=== PATIENT | male | born 1945 | race Caucasian/White ===

== ENCOUNTER 2021-08-15 10:38 | Emergency (ER) | payer OTHER ==
--- OUTSIDE RECORDS SUMMARY | 2021-08-15 10:42 | XMS REPORT | Continuity of Care Document ---
:1945 Author Organization [facility] t Address [address] [place] [address] Care Team Providers Name Role Phone Nasim Boston MD Primary Care Physician MARIA G DAVIS Attending Clinician Unavailable Melissa LOW Attending Clinician Serena STONEWORK SUPERVISOR, E. 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 1-16 College constipati constipati 00:00: of on on Medicin e Neurogenic Neurogenic Disease Active 2017-07 [facility] orthostati orthostati 0-16 Co llege c c 00:00: of hypotensio hypotensio 00 Me dicin n (HCCode) n (HCCode) e 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 0-16 Co llege disorder) disorder) 00:00: of 00 Medicin e Other Other Disease Active 2017-07 [facility] fatigue fatigue 0-16 College 00:00: of 00 Medicin e Parkinson' Parkinson' Disease Active 2017-07 [facility] s disease s disease 0-16 [facility] (HCCode) (HCCode) 00:00: of 00 Medicin e DEEP BRAIN DEEP BRAIN Disease Active 2017-07 [facility] STIMULATOR STIMULATOR 0-16 Co llege - BILAT - BILAT 00:00: of STN - STN - 00 Medicin MEDTRONIC MEDTRONIC e Allergies, Adverse Reactions, Alerts Allergy Allergy Status Severity Reaction(s) Onset Inactive Treating Comm ents Source Name Type Date Date Clinician NO KNOWN Allergy Active [facility] Social History Social Habit Start Date Stop Date Quantity Comments Source History [facility] ge Alcohol Frequency of Medi cine History [facility] ge Alcohol Std Drinks of Med icine History [facility] Alcohol Binge of Medicine Alcohol intake 2021-07-28 2021-07-28 Current drinker [facility] 00:00:00 00:00:00 of alcohol of Medicine (finding) Tobacco use and 2018-04-19 2018-04-19 Smokeless tobacco [facility] exposure 00:00:00 00:00:00 non-user of Medicine Alcohol Comment 2018-04-19 2018-04-19 1oz Vodka/day [facility] 00:00:00 00:00:00 of Medicine Sex Assigned At [address] 1945 [facility] llege 00:00:00 00:00:00 of Medicine Smoking Status Start Date Stop Date Source Never smoked tobacco [facility] ege of Medicine Medications Ordered Filled Start Stop Current Ordering Indication Dosage Frequency Signature Comments Components Source Medication Medication Date Date Medication? Clinician (SIG) Name Name acyclovir Yes 400mg Take 400 [facility] (ZOVIRAX) 1-24 mg by [place] 400 MG 13:41: mouth of tablet 53 daily. Medicin e Levodopa 2020-07 Yes 2{capsu Inhale 2 [facility] (INBRIJA) 2-30 le} Capsules 2 [facility] 42 MG CAPS 00:00: times of 00 daily as Medicin needed e (off period). acyclovir 2020-07 Yes 400mg Take 400 [facility] (ZOVIRAX) 2-28 mg by [place] 400 MG 13:27: mouth of tablet 49 daily. Medicin e Levodopa 2020-07 Yes 2{capsu Inhale 2 [facility] (INBRIJA) 2-28 le} Capsules 2 [facility] 42 MG CAPS 00:00: times of 00 daily as Medicin needed e (off period). Carbidopa-L 2020-07 Yes 1{capsu Take 1 B [facility] evodopa ER 2-21 le} capsule by Col lege (RYTARY) 00:00: mouth four of 61.25-245 00 times Medicin MG CPCR daily. e Carbidopa-L 2020-07 Yes 1{capsu Take 1 [facility] evodopa ER 2-21 le} capsule by Col lege (RYTARY) 00:00: mouth four of 61.25-245 00 times Medicin MG CPCR daily. e sertraline 2020-07 Yes Take 1/2 [facility] (ZOLOFT) 50 0-05 tablet Colleg e MG tablet 00:00: daily for of 1 week Medicin then make e it 1 tablet daily thereafter sertraline 2020-07 Yes Take 1/2 [facility] (ZOLOFT) 50 0-05 tablet Colleg e MG tablet 00:00: daily for 1 week Medicin then make e it 1 tablet daily thereafter clonazepam Yes 1mg Take 1 [facility] (KLONOPIN) 8-30 Tablet by [facility] 1 MG tablet 00:00: mouth at of 00 bedtime. Medicin e clonazepam Yes 1mg Take 1 [facility] (KLONOPIN) 8-30 Tablet by [facility] 1 MG tablet 00:00: mouth at of 00 bedtime. Medicin e fludrocorti Yes 200ug Take 2 [facility] sone 8-27 Tablets by [place] (FLORINEF) 00:00: mouth of 0.1 MG 00 daily. Medicin tablet e fludrocorti Yes 200ug Take 2 [facility] sone 8-27 Tablets by [place] ([facility]) 00:00: mouth of 0.1 MG 00 daily. Medicin tablet e acyclovir Yes 400mg Take 400 [facility] (ZOVIRAX) 7-15 mg by [place] 400 MG 13:24: mouth of tablet 58 daily. Medicin e Droxidopa Yes 2{tbl} Take 2 [facility] 300 MG CAPS 5-04 Tablets by Co llege 00:00: mouth two of 00 times Medicin daily. e Droxidopa Yes 2{tbl} Take 2 [facility] 300 MG CAPS 5-04 Tablets by Co llege 00:00: mouth two of 00 times Medicin daily. e Droxidopa Yes 2{tbl} Take 2 [facility] 300 MG CAPS 5-04 Tablets by Co llege 00:00: mouth two of 00 times Medicin daily. e nitroglycer Yes APPLY 1 [facility] in 3-16 PATCH ONTO [place] (NITRODUR) 00:00: THE SKIN of 0.6 MG/HR 00 NIGHTLY Medicin patch e nitroglycer Yes APPLY 1 [facility] in 3-16 PATCH ONTO [place] (NITRODUR) 00:00: THE SKIN of 0.6 MG/HR 00 NIGHTLY Medicin patch e clonazepam Yes 1mg Take 1 [facility] (KLONOPIN) 3-16 Tablet by [facility] 1 MG tablet 00:00: mouth at of 00 bedtime. Medicin e nitroglycer Yes APPLY 1 [facility] in 3-16 PATCH ONTO [place] (NITRODUR) 00:00: THE SKIN of 0.6 MG/HR 00 NIGHTLY Medicin patch e RYTARY 2019-07 Yes TAKE 1 Eliel 61.25-245 1-18 CAPSULE College MG CPCR 00:00: FOUR TIMES of 00 A DAY Medicin e acyclovir 2019-07 Yes 400mg Take 400 [facility] (ZOVIRAX) 1-04 mg by [place] 400 MG 16:08: mouth of tablet 20 daily. Medicin e nitroglycer 2019-07 Yes APPLY 1 [facility] in 0-01 PATCH ONTO [place] (NITRODUR) 00:00: THE SKIN of 0.6 MG/HR 00 NIGHTLY Medicin patch e clonazepam 2020-0 Yes 1mg Take 1 Tab [facility] (KLONOPIN) 9-22 by mouth Colle ge 1 MG tablet 00:00: at of 00 bedtime. Medicin e amphetamine 2020-0 Yes 1{tbl} Take 1 Tab [facility] -dextroamph 9-04 by mouth [facility] etamine 00:00: two times of (ADDERALL, 00 daily. Medicin 10MG,) 10 e MG tablet amphetamine 2020-0 Yes 1{tbl} Take 1 Tab [facility] -dextroamph 9-04 by mouth [facility] etamine 00:00: two times of (ADDERALL, 00 daily. Medicin 10MG,) 10 e MG tablet fludrocorti 2020-0 Yes 200ug Take 2 [facility] sone 9-04 Tabs by [facility]) 00:00: mouth of 0.1 MG 00 daily. Medicin tablet e amphetamine 2020-0 Yes 1{tbl} Take 1 Tab [facility] -dextroamph 9-04 by mouth [facility] etamine 00:00: two times of (ADDERALL, 00 daily. Medicin 10MG,) 10 e MG tablet fludrocorti 2020-0 Yes 200ug Take 2 [place] [facility] sone 9-04 Tabs by [facility]) 00:00: mouth of 0.1 MG 00 daily. Medicin tablet e amphetamine 2020-0 Yes 1{tbl} Take 1 Tab [facility] -dextroamph 9-04 by mouth [facility] etamine 00:00: two times of (ADDERALL, 00 daily. Medicin 10MG,) 10 e MG tablet Droxidopa 2020-0 Yes 2{tbl} Take 2 [facility] 300 MG CAPS 7-01 Tabs by Colle ge 00:00: mouth two of 00 times Medicin daily. e Droxidopa 2020-0 Yes 2{tbl} Take 2 [facility] 100 MG CAPS 2-28 Tabs by Colle ge 00:00: mouth two of 00 times Medicin daily. e Droxidopa 2020-0 Yes 2{tbl} Take 2 [facility] 100 MG CAPS 2-28 Tabs by Colle ge 00:00: mouth two of 00 times Medicin daily. e Droxidopa 2020-0 Yes 2{tbl} Take 2 [facility] 100 MG CAPS 2-28 Tabs by Colle ge 00:00: mouth two of 00 times Medicin daily. e Droxidopa Yes 2{tbl} Take 2 [facility] 100 MG CAPS 2-28 Tabs by Colle ge 00:00: mouth two of 00 times Medicin daily. e Carbidopa-L 2018-07 Yes 1{capsu Take 1 [facility] evodopa ER 08-13 le} capsule by Col gigi MendezRYTARY) 00:00: mouth four of 61.25-245 00 times Medicin MG CPCR daily. e linaCLOtide 2018-07 Yes 1{tbl} Take 1 Tab [facility] 145 MCG 1-22 by mouth College CAPS 00:00: daily. of Medicin e linaCLOtide 2018-07 Yes 1{tbl} Take 1 Tab [facility] 145 MCG 1-22 by mouth College CAPS 00:00: daily. of Medicin e linaCLOtide 2018-07 Yes 1{tbl} Take 1 Tab [facility] 145 MCG 1-22 by mouth College CAPS 00:00: daily. of Medicin e linaCLOtide 2018-07 Yes 1{tbl} Take 1 Tab [facility] 145 MCG 1-22 by mouth College CAPS 00:00: daily. of Medicin e Immunizations Ordered Immunization Filled Immunization Date Status Commen ts Source Name Name Pfizer SARS-CoV-2 2020-09-14 Completed [facility] Vaccination 00:00:00 of Medicine Pfizer SARS-CoV-2 2020-09-14 Completed [facility] Vaccination 00:00:00 of Medicine Pfizer SARS-CoV-2 2020-09-14 Completed [facility] Vaccination 00:00:00 of Medicine Pfizer SARS-CoV-2 2020-08-21 Completed [facility] Vaccination 00:00:00 of Medicine Pfizer SARS-CoV-2 2020-08-21 Completed [facility] Vaccination 00:00:00 of Medicine Pfizer SARS-CoV-2 2020-08-21 Completed [facility] Vaccination 00:00:00 of Medicine Vital Signs Vital Name Observation Time Observation Value Comments Source HEIGHT 2020-04-17 08:04:00 185.4 cm WEIGHT 2020-04-17 08:04:00 76.2 kg HEIGHT 2020-04-16 10:41:00 185.4 cm WEIGHT 2020-04-16 10:41:00 75.751 kg Body weight 2021-07-28 19:40:00 79.833 kg [facility] of [facility] BMI 2021-07-28 19:40:00 23.22 kg/m2 [facility] Medicine Systolic blood 2021-07-28 19:40:00 95 mm[Hg] [facility] pressure Medicine Diastolic blood 2021-07-28 19:40:00 57 mm[Hg] [facility] of pressure Medicine Heart rate 2021-07-28 19:40:00 87 /min [facility] of Medicine Body height 2021-07-28 19:40:00 185.4 cm [facility] C [facility] of Medicine Systolic blood 2021-07-01 19:25:00 167 mm[Hg] [facility] of pressure Medicine Diastolic blood 2021-07-01 19:25:00 87 mm[Hg] [facility] pressure Medicine Heart rate 2021-07-01 19:25:00 78 /min [facility] C [facility]lege of Medicine Body height 2021-07-01 19:25:00 185.4 cm [facility] C [facility] of Medicine Body weight 2021-07-01 19:25:00 79.153 kg [facility] of Medicine BMI 2021-07-01 19:25:00 23.02 kg/m2 [facility] C [facility] of Medicine Systolic blood 2021-01-16 18:23:00 151 mm[Hg] [facility] pressure Medicine Diastolic blood 2021-01-16 18:23:00 72 mm[Hg] [facility] pressure Medicine Heart rate 2021-01-16 18:23:00 83 /min [facility] of Medicine Body height 2021-01-16 18:23:00 185.4 cm [facility] of Medicine Body weight 2021-01-16 18:23:00 78.019 kg [facility] of Medicine BMI 2021-01-16 18:23:00 22.69 kg/m2 [facility] C [facility] of Medicine Systolic blood 2020-05-08 16:08:00 138 mm[Hg] [facility] of pressure Medicine Diastolic blood 2020-05-08 16:08:00 83 mm[Hg] [facility] Heart rate 2020-05-08 16:08:00 85 /min [facility] ollege of [facility] Body height 2020-05-08 16:08:00 185.4 cm [facility] ollege of [facility] Body weight 2020-05-08 16:08:00 75.751 kg [facility] ollege of [facility] BMI 2020-05-08 16:08:00 22.03 kg/m2 [facility] ollege of [facility] HEIGHT 2020-04-17 08:04:00 185.4 cm WEIGHT 2020-04-17 08:04:00 76.2 kg HEIGHT 2020-04-16 10:41:00 185.4 cm WEIGHT 2020-04-16 10:41:00 75.751 kg Procedures This patient has no known procedures. Plan of Care Planned Activity Planned Date Details Comments Source Future Scheduled 2021-08-03 Screening for [facility] Col lege of Test 20:51:45 malignant neoplasm of Medici ne colon (procedure) [code = 448097838] Future Scheduled 2021-08-03 TETANUS SHOT (ADULT) [facility] Test 20:51:45 [code = TETANUS SHOT Medicin e (ADULT)] Future Scheduled 2021-08-03 Hepatitis C screening [facility] Test 20:51:45 (procedure) [code = Medicine [id number]] Future Scheduled 2021-08-03 ZOSTER VACCINE (1 of [facility] Test 20:51:45 2) [code = ZOSTER Medicine VACCINE (1 of 2)] Future Scheduled 2021-08-03 FALL SCREEN [code = [facility] of Test 20:51:45 FALL SCREEN] Medicine Future Scheduled 2021-08-03 Pneumococcal 65+ ([address] [facility] of Test 20:51:45 1 - PPSV23) [code = Medicine Pneumococcal 65+ (1 of 1 - PPSV23)] Future Scheduled 2021-08-03 MEDICARE AWV (Initial) B [facility] of Test 20:51:45 [code = MEDICARE AWV Medicin e (Initial)] Future Scheduled 2021-08-03 FLU VACCINE > [address] [facility] of Test 20:51:45 [code = FLU VACCINE > Medici ne 6 MONTHS] Future Scheduled 2021-08-03 COVID-19 Vaccine (3 - Ba [facility] of Test 20:51:45 Booster for Pfizer Medicine series) [code = COVID-19 Vaccine (3 - Booster for Pfizer series)] Future Scheduled 2021-07-03 Pneumococcal 65+ ([address] [facility] of Test 12:49:33 1 - PPSV23) [code = Medicine Pneumococcal 65+ (1 of 1 - PPSV23)] Future Scheduled 2021-07-03 MEDICARE AWV (Initial) B [facility] of Test 12:49:33 [code = MEDICARE AWV Medicin e (Initial)] Future Scheduled 2021-07-03 FLU VACCINE > [address] [facility] of Test 12:49:33 [code = FLU VACCINE > Medici ne 6 MONTHS] Future Scheduled 2021-07-03 COVID-19 Vaccine (3 - Ba [facility] of Test 12:49:33 Booster for Pfizer Medicine series) [code = COVID-19 Vaccine (3 - Booster for Pfizer series)] Future Scheduled 2021-07-03 Screening for [facility] Col lege of Test 12:49:33 malignant neoplasm of Medici ne colon (procedure) [code = [id number]] Future Scheduled 2021-07-03 TETANUS SHOT (ADULT) [facility] of Test 12:49:33 [code = TETANUS SHOT Medicin e (ADULT)] Future Scheduled 2021-07-03 Hepatitis C screening [facility] of Test 12:49:33 (procedure) [code = Medicine [id number]] Future Scheduled 2021-07-03 ZOSTER VACCINE ([address] [facility] of Test 12:49:33 2) [code = ZOSTER Medicine VACCINE (1 of 2)] Future Scheduled 2021-07-03 FALL SCREEN [code = [facility] of Test 12:49:33 FALL SCREEN] Medicine Future Scheduled 2021-01-20 Screening for [facility] Col lege of Test 07:50:06 malignant neoplasm of Medici ne colon (procedure) [code = [id number]] Future Scheduled 2021-01-20 TETANUS SHOT (ADULT) [facility] of Test 07:50:06 [code = TETANUS SHOT Medicin e (ADULT)] Future Scheduled 2021-01-20 Hepatitis C screening [facility] of Test 07:50:06 (procedure) [code = Medicine [id number]] Future Scheduled 2021-01-20 ZOSTER VACCINE ([address] [facility] of Test 07:50:06 2) [code = ZOSTER Medicine VACCINE (1 of 2)] Future Scheduled 2021-01-[address] >=[address] [facility] llege of Test 07:50:06 (PPSV23) [code = Medicine PNEUMOVAX >=65 (PPSV23)] Future Scheduled 2021-01-20 MEDICARE AWV (Initial) B [facility] of Test 07:50:06 [code = MEDICARE AWV Medicin e (Initial)] Future Scheduled 2021-01-20 FLU VACCINE > [address] [facility] of Test 07:50:06 [code = FLU VACCINE > Medici ne 6 MONTHS] Future Scheduled 2021-01-20 FALL SCREEN [code = [facility] [place] of Test 07:50:06 FALL SCREEN] Medicine Future Scheduled COLON CANCER [facility] ege of Test SCREENING: COLONOSCOPY Medic ine [code = COLON CANCER SCREENING: COLONOSCOPY] Future Scheduled TETANUS SHOT (ADULT) [facility] Test [code = TETANUS SHOT Medicin e (ADULT)] Future Scheduled HEPATITIS C SCREENING [facility] Test [code = HEPATITIS C Medicine SCREENING] Future Scheduled ZOSTER VACCINE ([address] [facility] of Test 2) [code = ZOSTER Medicine VACCINE (1 of 2)] Future Scheduled PNEUMOVAX >=[address] [facility] llege of Test (PPSV23) [code = Medicine PNEUMOVAX >=65 (PPSV23)] Future Scheduled MEDICARE AWV (Initial) B [facility] Test [code = MEDICARE AWV Medicin e (Initial)] Future Scheduled FLU VACCINE > 6 MONTHS B [facility] Test [code = FLU VACCINE > Medici ne 6 MONTHS] Future Scheduled FALL SCREEN [code = [facility] [place] of Test FALL SCREEN] Medicine Encounters Start End Encounter Admission Attending Care Care Encounter Source Date/Time Date/Time Type Type Clinicians Facility Department ID 2021-04-09 Outpatient [facility] Surgery [id number] [facility] 09:07:03 ROMINA 2021-07-28 2021-07-28 Office JANICE Torres [id number] [facility] 13:30:00 15:07:09 Visit Guzman AMBULATOR [id number] College Y [id number] Medi kika 800 e 2021-07-01 2021-07-01 Office JANICE Lyons [id number] [facility] 13:30:00 14:51:09 Visit Geovanna Llanes AMBULATOR [id number] College Y 0.2.7.2.686 of [id number] [facility] kika 800 e 2021-01-16 2021-01-16 Office JANICE Torres [id number] [facility] 13:20:10 14:30:12 Visit Guzman AMBULATOR [id number] College Y 0.2.7.2.686 of [id number] [facility] kika 800 e 2020-09-12 2020-09-12 Outpatient A[facility] [id number] [place] 02:25:00 02:25:00 0311 [facility] 2020-05-08 2020-05-08 Office JANICE Torres [id number] [facility] 10:02:47 11:17:09 Visit Guzman AMBULATOR [id number] College Y 0.2.7.2.686 of [id number] [facility] kika 800 e 2020-04-16 2020-04-16 Outpatient [facility] [id number] [facility] 00:00:00 00:00:00 2020-04-12 2020-04-12 Outpatient [facility] [id number] [facility] 00:00:00 00:00:00 2020-04-12 2020-04-12 Outpatient [facility] [id number] [facility] 00:00:00 00:00:00 2020-04-12 2020-04-12 Outpatient [facility] SLE [id number] [facility] 00:00:00 00:00:00 2020-04-12 2020-04-12 Outpatient [facility] SLE [id number] [facility] 00:00:00 00:00:00 Results Test Description Test Time Test Comments Results Result [facility] e Comments TISSUE EXAM 2020-04-23 Surgical Pathology 09:25:00 Report Case: [id number] Authorizing Provider: Romina Davis MD Collected: 04/17/2020 11:06 AM Ordering Location: [facility] PERIOPERATIVE Received: 04/17/2020 11:22 AM SERVICES Pathologist: Walker Manuel MD Specimen: Explant, IMPLANTABLE PULSE GENERATOR NEUROSURGICAL HARDWARE, REMOVAL:DEEP BRAIN STIMULATOR DEVICE (GROSS EXAMINATION ONLY) Signing Pathologist Direct Phone Line: [phone] ally signed by Walker Manuel MD on 04/23/2020 at 9:25 [id number] diagnosis: Parkinson's disease, end of battery life of deep brain stimulator Explant Received fresh labeled with the patient's name, accession number and "implantable pulse generator" is a 5.8 x 5.4 x 1.0 cm metallic mei piece of hardware, which is consistent with a deep brain stimulator and displays the following inscription: MedtronicACTIVA FBSN [id number] gross photograph is taken. No sections are submitted. This case is for gross examination only. PA/pl BASIC METABOLIC PANEL 2020-04-17 09:02:00 Test Item Value Reference Range Interpretation Comme nts SODIUM (BEAKER) (test code 142 meq/L 136-145 = 381) POTASSIUM (BEAKER) (test 3.6 meq/L 3.5-5.1 Spe cimen slightly code = 379) hemolyzed CHLORIDE (BEAKER) (test 107 meq/L 98-107 code = 382) CO2 (BEAKER) (test code = 27 meq/L 22-29 355) BLOOD UREA NITROGEN 19 mg/dL 7-21 (BEAKER) (test code = 354) CREATININE (BEAKER) (test 1.26 mg/dL 0.57-1.25 H Sp ecimen slightly code = 358) hemolyzed GLUCOSE RANDOM (BEAKER) 103 mg/dL 70-105 (test code = 652) CALCIUM (BEAKER) (test code 9.4 mg/dL 8.4-10.2 = 697) EGFR (BEAKER) (test code = 56 mL/min/1.73 sq m ESTIMATED GFR IS NOT 1092) ACCURATE CRE ATININE CLEARANCE IN DC EDICTING GLOMERULAR FILT RATION RATE. ESTIMATED GFR IS NOT APPLICABLE FOR DIALYSIS PATIENTS. [facility] [place] ID - [id number] TIME/[id number] 08:56:00 Test Item Value Reference Range Interpretation Comments PROTIME (BEAKER) (test code = 13.9 seconds 11.9-14.2 759) INR (BEAKER) (test code = 370) 1.10 <=5.90 Effective 11/30/2018: PT Reference Range ChangeNew: 11.9-14.2 Previous: 11.7- 14.7RECOMMENDED COUMADIN/WARFARIN INR THERAPY RANGESSTANDARD DOSE: 2.0-3.0 Includes: PROPHYLAXIS for venous thrombosis, systemic embolization; TREATMENT for venous thrombosis and/or pulmonary embolus.HIGH RISK: Target INR is2.5-3.5 for patients wiht mechanical heart valves.SARS-COV2/RT-PCR ([facility]) 2020-04-13 11:52:00 Test Item Value Reference Range Interpretation Comments SARS-COV2/RT-PCR (test Negative Not Detected, Negative, code = 1613680) See external report for linked test SARS-COV-2 PERFORMING LAB [facility] (test code = 7316034) Negative result for this test determines that SARS-CoV-2 RNA was not present in the specimen above the Limit of Detection (LOD). However, Negative results do not preclude SARS-CoV-2 infection and should not be used as the sole basis for treatment or patient management decisions. Negative results mustbe combined with clinical observations, patient history, and epidemiological information. A false negative result may occur if a specimen is improperly collected, transported or handled. A false negative result should be considered if patient's recent exposures or clinical presentation indicate that COVID-19 (SARS-CoV-2) is likely and diagnostic tests for other causes of illness are negative. Re-testing should be considered in cases of suspected false negatives.The limit of detection for this assay is 800 copies/mL.This SARS CoV-2 test is a real-time RT-PCR test intended for the qualitative detection of nucleic acid from SARS-CoV-2 in a nasopharyngeal swab specimen collected from individuals susp ected of COVID-19 by their healthcare provider.This test has not been Food and Drug Administration (FDA) cleared or approved. This is a modified version of an approved Emergency Use Authorization (EUA) and is in the process of review by the FDA. Once authorized by the FDA, the issued EUA will be effective until the declaration that circumstances exist justifying the authorization of the emergency use of in vitro diagnostic tests for detection and/or diagnosis of COVID-19 is terminated under Section 564(b)(2) of the Act or the EUA is revoked under Section 564(g) of the Act.Fact Sheet for Healthcare Providers:https://www.[employer]/sites/default/files/product/documents/Fact_Rodríguez mccloudv_RJ_Rhlkfoqxh_Tzou_EMWB-IhY-3.pdfFact Sheet for Healthcare Patients:https://www.[employer]/sites/default/files/product/ documents/Fxjh_Wmjgq_Govwhnaa_Bjdl_CRYF-MmN-3.pdfPerforming Laboratory:[facility], [place] [address]RDF, CHEST, 2 VIEWS 2020-04-12 14:46:00Reason for exam:->preop testingFINAL REPORT INDICATION: preop testing COMPARISON: June 05, 2019 TECHNIQUE: Frontal and lateral views of the chest. FINDINGS: Lungs and pleura: Clear lungs. No effusion.Heart and mediastinum: Normal heart size. Unremarkable mediastinal contours.Osseous structures: No acute abnormality.Additional findings: None. IMPRESSION: No acute intrathoracic abnormality. Signed: JR Shivam, Cally Batista Verified Date/Time: 04/12/2020 14:46:25 Reading Location: [facility] Radiology Reading Room BASI METABOLIC [id number] 14:07:00 Test Item Value Reference Range Interpretation Comments SODIUM (BEAKER) 143 meq/L 136-145 (test code = 381) POTASSIUM (BEAKER) 3.4 meq/L 3.5-5.1 L (test code = 379) CHLORIDE (BEAKER) 104 meq/L 98-107 (test code = 382) CO2 (BEAKER) (test 31 meq/L 22-29 H code = 355) BLOOD UREA NITROGEN 16 mg/dL 7-21 (BEAKER) (test code = 354) CREATININE (BEAKER) 1.12 mg/dL 0.57-1.25 (test code = 358) GLUCOSE RANDOM 91 mg/dL 70-105 (BEAKER) (test code = 652) CALCIUM (BEAKER) 9.5 mg/dL 8.4-10.2 (test code = 697) EGFR (BEAKER) (test 64 mL/min/1.73 ESTIMA STEPHANIE GFR IS code = 1092) sq m NOT ACCURATE CREATININE CLEARANCE IN PREDICTING GLOMERULAR FILTRATION RATE . ESTIMATED GFR I S NOT APPLICABLE FOR DIALYSIS PATIEN TS. [place] ID - TRAY CURINALYSIS W/ REFLEX URINE [id number] 13:55:00 Test Item Value Reference Range Interpretation Comments COLOR (BEAKER) (test code = 470) Yellow CLARITY (BEAKER) (test code = 469) Clear SPECIFIC GRAVITY UA (BEAKER) (test 1.016 1.001-1.035 code = 468) PH UA (BEAKER) (test code = 467) 7.0 5.0-8.0 PROTEIN UA (BEAKER) (test code = Negative Negative 464) GLUCOSE UA (BEAKER) (test code = Negative Negative 365) KETONES UA (BEAKER) (test code = Trace Negative A 371) BILIRUBIN UA (BEAKER) (test code = Negative Negative 462) BLOOD UA (BEAKER) (test code = Negative Negative 461) NITRITE UA (BEAKER) (test code = Negative Negative 465) LEUKOCYTE ESTERASE UA (BEAKER) Negative Negative (test code = 466) UROBILINOGEN UA (BEAKER) (test 0.2 mg/dL 0.2-1.0 code = 463) RBC UA (BEAKER) (test code = 519) < /HPF WBC UA (BEAKER) (test code = 520) < /HPF MUCUS (BEAKER) (test code = 1574) Rare AMORPHOUS CRYSTALS (BEAKER) (test Occasional code = 1584) SOURCE(BEAKER) (test code = 2795) [place] ID - [auto][place] ID - techPROTHROMBIN [id number] 13:54:00 Test Item Value Reference Range Interpretation Comments PROTIME (BEAKER) (test code = 14.4 seconds 11.9-14.2 H 759) INR (BEAKER) (test code = 370) 1.15 <=5.90 Effective 11/30/2018: PT Reference Range ChangeNew: 11.9-14.2 Previous: 11.7- 14.7RECOMMENDED COUMADIN/WARFARIN INR THERAPY RANGESSTANDARD DOSE: 2.0-3.0 Includes: PROPHYLAXIS for venous thrombosis, systemic embolization; TREATMENT for venous thrombosis and/or pulmonary embolus.HIGH RISK: Target INR is2.5-3.5 for patients wiht mechanical heart valves.[id number] 13:54:00 Test Item Value Reference Range Interpretation Comments PARTIAL THROMBOPLASTIN TIME 34.5 seconds 22.5-36.0 (BEAKER) (test code = 760) CBC W/PLT COUNT & AUTO [id number] 13:48:00 Test Item Value Reference Range Interpretation Comments WHITE BLOOD CELL COUNT (BEAKER) 6.7 K/ L 3.5-10.5 (test code = 775) RED BLOOD CELL COUNT (BEAKER) 4.52 M/ L 4.63-6.08 L (test code = 761) HEMOGLOBIN (BEAKER) (test code = 14.7 GM/DL 13.7-17.5 410) HEMATOCRIT (BEAKER) (test code = 43.2 % 40.1-51.0 411) MEAN CORPUSCULAR VOLUME (BEAKER) 95.6 fL 79.0-92.2 H (test code = 753) MEAN CORPUSCULAR HEMOGLOBIN 32.5 pg 25.7-32.2 H (BEAKER) (test code = 751) MEAN CORPUSCULAR HEMOGLOBIN CONC 34.0 GM/DL 32.3-36.5 (BEAKER) (test code = 752) RED CELL DISTRIBUTION WIDTH 13.1 % 11.6-14.4 (BEAKER) (test code = 412) PLATELET COUNT (BEAKER) (test 182 K/CU MM 150-450 code = 756) MEAN PLATELET VOLUME (BEAKER) 9.8 fL 9.4-12.4 (test code = 754) NUCLEATED RED BLOOD CELLS 0 /100 WBC 0-0 (BEAKER) (test code = 413) NEUTROPHILS RELATIVE PERCENT 71 % (BEAKER) (test code = 429) LYMPHOCYTES RELATIVE PERCENT 20 % (BEAKER) (test code = 430) MONOCYTES RELATIVE PERCENT 7 % (BEAKER) (test code = 431) EOSINOPHILS RELATIVE PERCENT 2 % (BEAKER) (test code = 432) BASOPHILS RELATIVE PERCENT 1 % (BEAKER) (test code = 437) NEUTROPHILS ABSOLUTE COUNT 4.71 K/ L 1.78-5.38 (BEAKER) (test code = 670) LYMPHOCYTES ABSOLUTE COUNT 1.30 K/ L 1.32-3.57 L (BEAKER) (test code = 414) MONOCYTES ABSOLUTE COUNT (BEAKER) 0.44 K/ L 0.30-0.82 (test code = 415) EOSINOPHILS ABSOLUTE COUNT 0.15 K/ L 0.04-0.54 (BEAKER) (test code = 416) BASOPHILS ABSOLUTE COUNT (BEAKER) 0.03 K/ L 0.01-0.08 (test code = 417) IMMATURE GRANULOCYTES-RELATIVE 0 % 0-1 PERCENT (BEAKER) (test code = 2801) TISSUE [id number] 19:35:00Surgical Pathology Report Case: [id number] Authorizing Provider: Romina Davis MD Collected: 06/05/2019 0843 Ordering Location: [facility] PERIOPER[facility]IVE Received: 06/05/2019 0912 SERVICES Pathologist: Walker Manuel MD Specimen: Explant, dbs battery NEUROSURGICAL HARDWARE, REMOVALlDEEP BRAIN STIMULATOR BATTERY (GROSS EXAMINATION ONLY) Signing Pathologist DirectPhone Line: [phone] signed by Walker Manuel MD on 06/05/2019 at 7:35 [id number] of battery life of deep brain stimulatorReceived fresh labeled with the patient's name, accession number and "explant" is a 5.8 x 5.5 x 1.0 cm, metallic, mei, D-shaped piece of hardware that containsthe following inscription:"[employer]""ACTIVA SC SN [id number]""[id number]"A gross photograph is taken. No sections are submitted. This case is for gross examination only. PA/ewURINALYSIS W/ REFLEX URINE [id number] 09:58:00 Test Item Value Reference Range Interpretation Comments COLOR (BEAKER) (test code = 470) Yellow CLARITY (BEAKER) (test code = 469) Clear SPECIFIC GRAVITY UA (BEAKER) (test 1.012 1.001-1.035 code = 468) PH UA (BEAKER) (test code = 467) 6.0 5.0-8.0 PROTEIN UA (BEAKER) (test code = Negative Negative 464) GLUCOSE UA (BEAKER) (test code = Negative Negative 365) KETONES UA (BEAKER) (test code = Negative Negative 371) BILIRUBIN UA (BEAKER) (test code = Negative Negative 462) BLOOD UA (BEAKER) (test code = 461) Negative Negative NITRITE UA (BEAKER) (test code = Negative Negative 465) LEUKOCYTE ESTERASE UA (BEAKER) Negative Negative (test code = 466) UROBILINOGEN UA (BEAKER) (test code 0.2 mg/dL 0.2-1.0 = 463) RBC UA (BEAKER) (test code = 519) 0 /HPF WBC UA (BEAKER) (test code = 520) < /HPF MUCUS (BEAKER) (test code = 1574) Rare SOURCE(BEAKER) (test code = 2795) BASIC METABOLIC [id number] 07:42:00 Test Item Value Reference Range Interpretation Comments SODIUM (BEAKER) (test 141 meq/L 136-145 code = 381) POTASSIUM (BEAKER) 4.4 meq/L 3.5-5.1 Specimen slightly (test code = 379) hemolyzed CHLORIDE (BEAKER) 108 meq/L 98-107 H (test code = 382) CO2 (BEAKER) (test 28 meq/L 22-29 code = 355) BLOOD UREA NITROGEN 13 mg/dL 7-21 (BEAKER) (test code = 354) CREATININE (BEAKER) 1.36 mg/dL 0.57-1.25 H Specimen slightly (test code = 358) hemolyzed GLUCOSE RANDOM 89 mg/dL 70-105 (BEAKER) (test code = 652) CALCIUM (BEAKER) 9.2 mg/dL 8.4-10.2 (test code = 697) EGFR (BEAKER) (test INSUFFIC IENT CLINICAL code = 1092) DATA TO CALCULA TE ESTIMATED GFR. [id number] 07:22:00 Test Item Value Reference Range Interpretation Comments PARTIAL THROMBOPLASTIN TIME 29.3 seconds 22.5-36.0 (BEAKER) (test code = 760) PROTHROMBIN [id number] 07:21:00 Test Item Value Reference Range Interpretation Comments PROTIME (BEAKER) (test code = 13.4 seconds 11.9-14.2 759) INR (BEAKER) (test code = 370) 1.1 <=5.9 Effective 11/30/2018: PT Reference Range ChangeNew: 11.9-14.2 Previous: 11.7- 14.7RECOMMENDED COUMADIN/WARFARIN INR THERAPY RANGESSTANDARD DOSE: 2.0-3.0 Includes: PROPHYLAXIS for venous thrombosis, systemic embolization; TREATMENT for venous thrombosis and/or pulmonary embolus.HIGH RISK: Target INR is2.5-3.5 for patients wiht mechanical heart valves.RAD, CHEST, 1 VIEW, NON [id number] 07:14:00Reason for exam:->End of battery life of deep brain stimulatorShould this be performed at the bedside?->YesFINAL REPORT RAD, CHEST, 1 VIEW, NON DEPT INDICATION: End of battery life of deep brain stimulator COMPARISON: None FINDINGS: Portable frontal view of the chest. IMPRESSION: Support Lines: Bilateral deep brain stimulator generators project over the lung apices. Lungs and pleura: Visible airspaces are clear. No pneumothorax.Heart and mediastinum: Cardiac size is prominent andmay be partially magnified by technique. No venous engorgement or hilar adenopathy. Normal aortic caliber.Additional findings: None. Signed: JR Shivam, Cally Batista Verified Date/Time: 06/05/2019 07:14:29 Reading Location: [facility] Radiology Reading Room CBC W/PLT COUNT & AUTO DIFFERENTIAL 2019-06-05 07:13:00 Test Item Value Reference Range Interpretation Comments WHITE BLOOD CELL COUNT (BEAKER) 5.2 K/ L 3.5-10.5 (test code = 775) RED BLOOD CELL COUNT (BEAKER) 4.54 M/ L 4.63-6.08 L (test code = 761) HEMOGLOBIN (BEAKER) (test code = 14.7 GM/DL 13.7-17.5 410) HEMATOCRIT (BEAKER) (test code = 44.8 % 40.1-51.0 411) MEAN CORPUSCULAR VOLUME (BEAKER) 98.7 fL 79.0-92.2 H (test code = 753) MEAN CORPUSCULAR HEMOGLOBIN 32.4 pg 25.7-32.2 H (BEAKER) (test code = 751) MEAN CORPUSCULAR HEMOGLOBIN CONC 32.8 GM/DL 32.3-36.5 (BEAKER) (test code = 752) RED CELL DISTRIBUTION WIDTH 13.3 % 11.6-14.4 (BEAKER) (test code = 412) PLATELET COUNT (BEAKER) (test 193 K/CU MM 150-450 code = 756) MEAN PLATELET VOLUME (BEAKER) 10.2 fL 9.4-12.4 (test code = 754) NUCLEATED RED BLOOD CELLS 0 /100 WBC 0-0 (BEAKER) (test code = 413) NEUTROPHILS RELATIVE PERCENT 60 % (BEAKER) (test code = 429) LYMPHOCYTES RELATIVE PERCENT 29 % (BEAKER) (test code = 430) MONOCYTES RELATIVE PERCENT 9 % (BEAKER) (test code = 431) EOSINOPHILS RELATIVE PERCENT 2 % (BEAKER) (test code = 432) BASOPHILS RELATIVE PERCENT 1 % (BEAKER) (test code = 437) NEUTROPHILS ABSOLUTE COUNT 3.06 K/ L 1.78-5.38 (BEAKER) (test code = 670) LYMPHOCYTES ABSOLUTE COUNT 1.47 K/ L 1.32-3.57 (BEAKER) (test code = 414) MONOCYTES ABSOLUTE COUNT (BEAKER) 0.45 K/ L 0.30-0.82 (test code = 415) EOSINOPHILS ABSOLUTE COUNT 0.12 K/ L 0.04-0.54 (BEAKER) (test code = 416) BASOPHILS ABSOLUTE COUNT (BEAKER) 0.04 K/ L 0.01-0.08 (test code = 417) IMMATURE GRANULOCYTES-RELATIVE 0 % 0-1 PERCENT (BEAKER) (test code = 4681)
--- NOTE | 2021-08-15 12:08 | RAD REPORT ---
EXAM DESCRIPTION: RAD - Abdomen W Erect - 08/15/2021 11:51 am CLINICAL HISTORY: fb;Abd pain Pain COMPARISON: No comparisons FINDINGS: The bowel gas pattern is non-obstructive. No evidence of free air or pneumatosis. No suspi cious calcifications. No significant bony findings. Prostate radiation beads noted. IMPRESSION: Negative examination.
--- NOTE | 2021-08-15 12:08 | RAD REPORT ---
EXAM DESCRIPTION: RAD - Chest Single View - 08/15/2021 11:51 am CLINICAL HISTORY: fb Chest pain. COMPARISON: No comparisons FINDINGS: Portable technique limits examination quality. The lungs are grossly clear. The heart is normal in size. No displaced fractures.Stimulator devices a re present obscuring portions of the upper lobe parenchyma bilaterally. IMPRESSION: No acute intrathoracic process suspected.
--- NOTE | 2021-08-15 12:46 | EDPHYS ---
Physician Documentation [facility] Name: Cole Bo Age: 76 yrs Sex: Male : 1945 Arrival Date: 08/15/2021 Time: 10:42 Bed 23 Private MD: Jarret Rouse V ED Physician Chad Coates HPI: 08/15 11:33 This 76 yrs old Male presents to ER via Ambulatory with complaints of vick Swallowed Foreign Body. 11:33 maybe swallowed something. Onset: The symptoms/episode began/occurred 8 day(s) ago. vick Severity of symptoms: At their worst the symptoms were mild in the emergency department the symptoms are unchanged. The patient has not experienced similar symptoms in the past. Historical: - Allergies: 10:52 No Known Allergies; ll1 - PMHx: 10:52 Parkinson's disease; prostate CA (past); Hypertensive disorder; OSHS; ll1 - PSHx: 10:52 deep brain stimulator; ll1 - Immunization history:: Client reports receiving the 2nd dose of the Covid vaccine. - Social history:: Smoking status: Patient denies any tobacco usage or history of. ROS: 11:34 Constitutional: Negative for fever, chills, and weight loss, Eyes: Negative for injury, vick pain, redness, and discharge, ENT: Negative for injury, pain, and discharge, Neck: Negative for injury, pain, and swelling, Cardiovascular: Negative for chest pain, palpitations, and edema, Respiratory: Negative for shortness of breath, cough, wheezing, and pleuritic chest pain, Abdomen/GI: Negative for abdominal pain, nausea, vomiting, diarrhea, and constipation, Back: Negative for injury and pain, : Negative for injury, bleeding, discharge, and swelling, MS/Extremity: Negative for injury and deformity, Skin: Negative for injury, rash, and discoloration, Neuro: Negative for headache, weakness, numbness, tingling, and seizure, Psych: Negative for depression, anxiety, suicide ideation, homicidal ideation, and hallucinations, Allergy/Immunology: Negative for hives, rash, and allergies, Endocrine: Negative for neck swelling, polydipsia, polyuria, polyphagia, and marked weight changes, Hematologic/Lymphatic: Negative for swollen nodes, abnormal bleeding, and unusual bruising. 11:34 : Positive for tiny blood at meatus. Exam: 11:34 Constitutional: This is a well developed, well nourished patient who is awake, alert, vick and in no acute distress. Head/Face: Normocephalic, atraumatic. Eyes: Pupils equal round and reactive to light, extra-ocular motions intact. Lids and lashes normal. Conjunctiva and sclera are non-icteric and not injected. Cornea within normal limits. Periorbital areas with no swelling, redness, or edema. ENT: Nares patent. No nasal discharge, no septal abnormalities noted. Tympanic membranes are normal and external auditory canals are clear. Oropharynx with no redness, swelling, or masses, exudates, or evidence of obstruction, uvula midline. Mucous membranes moist. Neck: Trachea midline, no thyromegaly or masses palpated, and no cervical lymphadenopathy. Supple, full range of motion without nuchal rigidity, or vertebral point tenderness. No Meningismus. Chest/axilla: Normal chest wall appearance and motion. Nontender with no deformity. No lesions are appreciated. Cardiovascular: Regular rate and rhythm with a normal S1 and S2. No gallops, murmurs, or rubs. Normal PMI, no JVD. No pulse deficits. Respiratory: Lungs have equal breath sounds bilaterally, clear to auscultation and percussion. No rales, rhonchi or wheezes noted. No increased work of breathing, no retractions or nasal flaring. Abdomen/GI: Soft, non-tender, with normal bowel sounds. No distension or tympany. No guarding or rebound. No evidence of tenderness throughout. Back: No spinal tenderness. No costovertebral tenderness. Full range of motion. Male : Normal genitalia with no discharge or lesions. Skin: Warm, dry with normal turgor. Normal color with no rashes, no lesions, and no evidence of cellulitis. MS/ Extremity: Pulses equal, no cyanosis. Neurovascular intact. Full, normal range of motion. Neuro: Awake and alert, GCS 15, oriented to person, place, time, and situation. Cranial nerves II-XII grossly intact. Motor strength 5/5 in all extremities. Sensory grossly intact. Cerebellar exam normal. Normal gait. Psych: Awake, alert, with orientation to person, place and time. Behavior, mood, and affect are within normal limits. Vital Signs: 10:50 Pulse 77; Resp 18; Temp 97.2; Pulse Ox 99% ; Weight 79.38 kg; Height 6 ft. 1 in. ll1 (185.42 cm); Pain 0/10; 10:54 BP 215 / 106; ll1 12:12 BP 203 / 106; Pulse 70; Resp 17; Pulse Ox 99% ; Pain 0/10; eo2 13:00 BP 191 / 98 LA Sitting; Pulse 72; Resp 15; Pulse Ox 97% ; Pain 0/10; eo2 13:30 BP 146 / 87 Standing; Pulse 82; Resp 15; Pulse Ox 98% ; Pain 0/10; eo2 10:50 Body Mass Index 23.09 (79.38 kg, 185.42 cm) ll1 MDM: 11:13 Patient medically screened. vick 11:35 Differential diagnosis: nonspecific abdominal pain, UTI, prostatitis, urethritis. Data vick reviewed: vital signs, nurses notes, radiologic studies, plain films. Data interpreted: monitor car operator: rate is 77 beats/min, rhythm is regular, Pulse oximetry: is not applicable for this patient encounter. Test interpretation: by ED physician or midlevel provider: plain radiologic studies. Counseling: I had a detailed discussion with the patient and/or guardian regarding: the historical points, exam findings, and any diagnostic results supporting the discharge/admit diagnosis, lab results, radiology results, the need for outpatient follow up, for definitive care, a family practitioner. 08/15 12:50 Order name: Urine Culture [facility] 08/15 12:51 Order name: Urine Culture [facility] 08/15 11:16 Order name: Chest Single View XRAY [facility] 08/15 11:16 Order name: Abdomen with Erect XRAY; Complete Time: 12:45 [facility] 08/15 11:17 Order name: Chest Single View; Complete Time: 12:45 [facility] 08/15 13:29 Order name: Urine Dipstick-Ancillary [facility] 08/15 12:50 Order name: Urine Dipstick-Ancillary (obtain specimen); Complete Time: 13:30 vick Administered Medications: 13:30 Not Given (Hemodynamic Parameters): cloNIDine 0.1 mg PO once eo2 Disposition Summary: 08/15/21 12:46 Discharge Ordered Location: Home vick Problem: new vick Symptoms: have improved vick Condition: Stable vick Diagnosis - Foreign body of alimentary tract, part unspecified - suspected vick - Hematuria, unspecified vick - Parkinson's disease vick - Essential (primary) hypertension vick Followup: vick - With: - When: 2 - 3 days - Reason: Recheck today's complaints, Continuance of care, Re-evaluation by your physician Discharge Instructions: - Discharge Summary Sheet vick - Hematuria, Adult vick - Parkinson's Disease vick - Swallowed Foreign Body, Adult vick - Hypertension, Adult vick - Hypertension, Adult, [id number] vick - Swallowed Foreign Body, Adult, Ggkc-[id number] vick - Parkinson's Disease, Hmpw-[id number] vick - Managing Your Hypertension vick Forms: - Medication Reconciliation Form vick - Thank You Letter vick - Antibiotic Education vick - Prescription Opioid Use vick Signatures: Dispatcher [employer] EDChad Miller MD MD cha Lewis, Lynsay, RN RN ll1 Ramona Lanier RN eo2
--- NOTE | 2021-08-15 12:46 | ER ---
Nurse's Notes [facility] Name: Cole Bo Age: 76 yrs Sex: Male : 1945 Arrival Date: 08/15/2021 Time: 10:42 Bed 23 Private MD: Jarret Rouse V Diagnosis: Foreign body of alimentary tract, part unspecified-suspected;Hematuria, unspecified;Parkinson's disease;Essential (primary) hypertension Presentation: 08/15 10:50 Chief complaint: Patient states: States he thinks he might have swallowed a foreign ll1 object last week while sleeping. Reports abd pain since last night. No fever. Coronavirus screen: Vaccine status: Patient reports receiving the 2nd dose of the covid vaccine. Client denies travel out of the [place] in the last 14 days. At this time, the client does not indicate any symptoms associated with coronavirus-19. Ebola Screen: Patient denies travel to an Ebola-affected area in the 21 days before illness onset. Initial Sepsis Screen: Does the patient meet any 2 criteria? No. Patient's initial sepsis screen is negative. Does the patient have a suspected source of infection? Yes: Acute abdominal pain. Risk Assessment: Do you want to hurt yourself or someone else? Patient reports no desire to harm self or others. Onset of symptoms was August 08, 2021. 10:50 Method Of Arrival: Ambulatory ll1 10:50 Acuity: DENISE 3 ll1 Historical: - Allergies: 10:52 No Known Allergies; ll1 - PMHx: 10:52 Parkinson's disease; prostate CA (past); Hypertensive disorder; OSHS; ll1 - PSHx: 10:52 deep brain stimulator; ll1 - Immunization history:: Client reports receiving the 2nd dose of the Covid vaccine. - Social history:: Smoking status: Patient denies any tobacco usage or history of. Screenin:42 Abuse screen: Denies threats or abuse. Denies injuries from another. Nutritional eo2 screening: No deficits noted. Tuberculosis screening: No symptoms or risk factors identified. Fall Risk None identified. Assessment: 11:42 General: Appears in no apparent distress. comfortable, Behavior is calm, cooperative. eo2 Pain: Complains of pain in abodminal discomfort. Neuro: Level of Consciousness is awake, alert, obeys commands, Oriented to person, place, time, Denies dizziness, headache. Cardiovascular: Denies chest pain, shortness of breath. Respiratory: Breath sounds are clear bilaterally. Denies shortness of breath. GI: Abdomen is non-distended, Bowel sounds present X 4 quads. Reports lower abdominal pain, abdominal discomfort, reports possibly swallowing a metal object on 08/07/21. : Reports "blood on urethra", yesterday and this morning, denies dysuria. Vital Signs: 10:50 Pulse 77; Resp 18; Temp 97.2; Pulse Ox 99% ; Weight 79.38 kg; Height 6 ft. 1 in. ll1 (185.42 cm); Pain 0/10; 10:54 BP 215 / 106; ll1 12:12 BP 203 / 106; Pulse 70; Resp 17; Pulse Ox 99% ; Pain 0/10; eo2 13:00 BP 191 / 98 LA Sitting; Pulse 72; Resp 15; Pulse Ox 97% ; Pain 0/10; eo2 13:30 BP 146 / 87 Standing; Pulse 82; Resp 15; Pulse Ox 98% ; Pain 0/10; eo2 10:50 Body Mass Index 23.09 (79.38 kg, 185.42 cm) ll1 ED Course: 10:42 Patient arrived in ED. mr 10:42 Jarret Rouse MD is Private Physician. mr 10:52 Triage completed. ll1 10:54 Arm band placed on Patient placed in an exam room, on a stretcher. ll1 11:13 Chad Coates MD is Attending Physician. vick 11:22 Ramona Lanier, MADDIE is Primary Nurse. eo2 11:42 Patient has correct armband on for positive identification. eo2 11:42 Pulse ox on. NIBP on. Door closed. Noise minimized. eo2 11:42 No provider procedures requiring assistance completed. eo2 11:51 Chest Single View In Process Unspecified. EDMS 11:51 Abdomen with Erect XRAY In Process Unspecified. EDMS 12:45 Jarret Rouse MD is Referral Physician. vick 13:30 Urine Culture Sent. eo2 13:30 Urine Culture Sent. eo2 13:30 Chest Single View XRAY Sent. eo2 13:30 Urine Dipstick-Ancillary Sent. eo2 Administered Medications: 13:30 Not Given (Hemodynamic Parameters): cloNIDine 0.1 mg PO once eo2 Outcome: 12:46 Discharge ordered by . vick 14:00 Discharged to home ambulatory, with friend. eo2 14:00 Condition: stable 14:00 Discharge instructions given to patient, friend, Instructed on discharge instructions, follow up and referral plans. Demonstrated understanding of instructions, follow-up care. 14:01 Patient left the ED. eo2 Signatures: Dispatcher [employer] EDVA Chad Coates MD MD cha Rivera, Mary mr Byron Mcmahan RN RN ll1 Ramona Lanier RN RN eo2
[2021-08-15 13:30] LABS: Urine Blood Negative (Negative); Urine Glucose Negative (Negative); Urine Protein Trace (Negative); Urine Specific Gravity 1.025 (1.005-1.030)
[2021-08-15 14:04] VITALS: TEMP 97.2
[2021-08-15 14:09] VITALS: BP 146/87; O2SAT 98
== END 2021-08-15 14:01 | disposition home or self-care (01) ==
LOC: ER 10:38
DX: R31.9 Hematuria, unspecified (principal); I10 Essential (primary) hypertension; G20 Parkinson's disease; C61 Malignant neoplasm of prostate
CPT/HCPCS: 71045; 74019; 81003; 87086; 87088; 99284

== ENCOUNTER 2021-08-21 11:51 | Day surgery (SDC) | payer OTHER ==
[2021-08-19 11:47] LABS: Protime INR 0.96
--- NOTE | 2021-08-20 11:16 | EKG ---
Test Date: 2021-08-19 Test Time: 11:08:14 Ladle Puller: JAME MEASUREMENT RESULTS: Intervals: Rate: 60 MS: 162 QRSD: 160 QT: 514 QTc: 514 [place]: P: 62 MS: 162 QRS: -46 T: 118 INTERPRETIVE STATEMENTS: Normal sinus rhythm Left axis deviation Left bundle branch block Abnormal ECG No previous ECG available for comparison Electronically Signed On 08-20-21 11:13:53 GLOBAL IMPLEMENTATION MANAGER by Krunal Preston
[~2021-08-21 11:51] MED LIST: HEPA 1000U/500MLS 2,000 UNIT/1,000 ML BAG IV ONE
[2021-08-21] MEDS ORDERED: NA CHLORIDE 0.9% 500 ML ONE (12:11)
[2021-08-21 12:28] LABS: Absolute Lymphocytes (CBC) 1.4 K/uL (0.7-4.9); Hematocrit 43.1 % (39.6-49.0); Lymphocytes % 23.8 % (15.3-44.8); MPV 7.7 fL (7.6-11.3); RBC Red Blood Cell Count 4.57 M/uL (4.33-5.43)
[2021-08-21 13:00] VITALS: TEMP 97.7
[2021-08-21] MEDS ORDERED: FENTANYL CITR 100 MCG/2 ML ONE (14:10)
[2021-08-21] MEDS ORDERED: HEPARIN 5000 UNIT/ML 1 ML VIAL ONE (14:10)
[2021-08-21] MEDS ORDERED: MIDAZOLAM HCL 2 MG/2 ML INJ ONE (14:10)
[2021-08-21] MEDS ORDERED: VERAPAMIL HCL 10 MG/4 ML VIAL IV ONE (14:10)
[2021-08-21] MEDS ORDERED: NITROGLYCERIN 100 MCG/ML SYR (for cath lab use only) IV ONE (14:11)
[2021-08-21] MEDS ORDERED: ATROPINE SULF 1 MG/10 ML SYR IV ONE (14:11)
[2021-08-21] MEDS ORDERED: REGADENOSON 0.4 MG/5 ML SYR IV ONE (14:56)
[2021-08-21 17:53] VITALS: O2SAT 98
[2021-08-21 18:24] VITALS: BP 138/82
--- NOTE | 2021-08-22 02:37 | OP ---
Date of Procedure: 08/21/2021 Surgeon: PRASHANT TREJO Procedures Performed: 1.Selective coronary angiogram. 2.Left heart catheterization. 3.FFR of mid LAD, moderate stenosis, which was insignificant at 0.86. Complications: None. Bleeding: Less than 10 mL. Anesthesia: Total sedation time was 30 minutes. Indication: Abnormal stress test. Description Of Procedure: After risks, benefits, and alternatives were explained, the patient agreed to proceed and signed informed consent. Patient was brought in the cardiac catheterization laborato , prepped and draped in usual sterile fashion, and accessed right radial artery using pediatric ahsan ropuncture kit and placed a 6-Namibian slender sheath and took a 5-Namibian Cosby 4.0 catheter into the a ortic root, engaged the left main, right coronary artery, took standard views, and then through a JL3 .5 6-Namibian, I engaged the left main, gave systemic heparin to assure ACT level above 250, and took a comet wire for FFR into the aortic root. Pressures were equalized and then the wire was passed thro ugh the LAD passing the area of stenosis and using Lexiscan, FFR was obtained and the lowest value wa s 0.86 and then pullback showed no drift. Final angiogram was satisfactory. I then removed the cath eter. Sheath in place, stable and good hemostasis. Findings: 1.Left main is normal. 2.LAD proximal portion is normal. Diagonal branches are normal. In the midsection, heavily calcifi ed 60% stenosis about 20-30 mm length lesion and FFR was insignificant at 0.86. 3.Left circumflex is large, dominant with distal 40% stenosis. 4.RCA; large codominant with distal 50% stenosis. 5.LVEDP normal at 5 mmHg. 6.Mid LAD FFR was negative at 0.86. Conclusion: Moderate coronary artery disease with negative FFR of LAD, value of 0.86. Plan: Medical management. SR/MODL Voice ID: [id number] Report ID: [id number]
== END 2021-08-21 18:45 | disposition home or self-care (01) ==
LOC: CCL 11:51
PROVIDERS: ATTEND Internal Medicine
DX: I25.10 Atherosclerotic heart disease of native coronary artery without angina pectoris (principal); I44.7 Left bundle-branch block, unspecified; Z20.822 Contact with and (suspected) exposure to COVID-19
CPT/HCPCS: 93005; 85025; 80048; 36415 ×2; 85610; 85730; 93458; 93571; U0003; C1893; J1644 ×2; J2250; J3010; J2785; J7040; C1769

== ENCOUNTER 2021-08-21 19:16 | Emergency (ER) | payer OTHER ==
--- OUTSIDE RECORDS SUMMARY | 2021-08-21 19:21 | XMS REPORT | Continuity of Care Document ---
:1945 Author Organization [facility] t Address [address] [place] [address] Care Team Providers Name Role Phone Nasim Boston MD Primary Care Physician MARIA G DAVIS Attending Clinician Unavailable Melissa LOW Attending Clinician Serena RETAIL PHARMACY MANAGER, E. 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 1-16 College constipati constipati 00:00: of on on Medicin e Neurogenic Neurogenic Disease Active 2017-07 [facility] orthostati orthostati 0-16 Co llege c c 00:00: of hypotensio hypotensio 00 Me dicin n (HCCode) n (HCCode) e 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 0-16 Co llege disorder) disorder) 00:00: of 00 Medicin e Other Other Disease Active 2017-07 [facility] fatigue fatigue 0-16 College 00:00: of 00 Medicin e Parkinson' Parkinson' Disease Active 2017-07 [facility] s disease s disease 0-16 [facility] (HCCode) (HCCode) 00:00: of 00 Medicin e DEEP BRAIN DEEP BRAIN Disease Active 2017-07 [facility] STIMULATOR STIMULATOR 0-16 Co llege - BILAT - BILAT 00:00: of STN - STN - 00 Medicin MEDTRONIC MEDTRONIC e Allergies, Adverse Reactions, Alerts Allergy Allergy Status Severity Reaction(s) Onset Inactive Treating Comm ents Source Name Type Date Date Clinician NO KNOWN Allergy Active [facility] Social History Social Habit Start Date Stop Date Quantity Comments Source History [facility] Alcohol Frequency of Medi cine History [facility] Alcohol Std Drinks of Med icine History [facility] Alcohol Binge of Medicine Alcohol intake 2021-07-28 2021-07-28 Current drinker [facility] 00:00:00 00:00:00 of alcohol of Medicine (finding) Tobacco use and 2018-04-19 2018-04-19 Smokeless tobacco [facility] exposure 00:00:00 00:00:00 non-user of Medicine Alcohol Comment 2018-04-19 2018-04-19 1oz Vodka/day [facility] 00:00:00 00:00:00 of Medicine Sex [birth year] [facility] llege 00:00:00 00:00:00 of Medicine Smoking Status Start Date Stop Date Source Never smoked tobacco [facility] ege of Medicine Medications Ordered Filled Start Stop Current Ordering Indication Dosage Frequency Signature Comments Components Source Medication Medication Date Date Medication? Clinician (SIG) Name Name acyclovir Yes 400mg Take 400 [place] [facility] (ZOVIRAX) 1-24 mg by [place] 400 MG 13:41: mouth of tablet 53 daily. Medicin e Levodopa 2020-07 Yes 2{capsu Inhale 2 [facility] (INBRIJA) 2-30 le} Capsules 2 [facility] e[facility] 42 MG CAPS 00:00: times of 00 daily as Medicin needed e (off period). acyclovir 2020-07 Yes 400mg Take 400 [place] [facility] (ZOVIRAX) 2-28 mg by [place] 400 MG 13:27: mouth of tablet 49 [...] daily. e sertraline 2020-07 Yes Take 1/2 [place] [facility] (ZOLOFT) 50 0-05 tablet Colleg e MG tablet 00:00: daily for of 1 week Medicin then make e it 1 tablet daily thereafter sertraline 2020-07 Yes Take 1/2 [place] [facility] (ZOLOFT) 50 0-05 tablet Colleg e [...] Medicin e fludrocorti Yes 200ug Take 2 [place] [facility] sone 8-27 Tablets by [place] (FLORINEF) 00:00: mouth of 0.1 MG 00 daily. Medicin tablet e fludrocorti Yes 200ug Take 2 [place] [facility] sone 8-27 Tablets by [place] ([facility]) 00:00: mouth of 0.1 MG 00 daily. Medicin tablet e acyclovir Yes 400mg Take 400 [place] [facility] (ZOVIRAX) 7-15 mg by [place] 400 MG 13:24: mouth of tablet 58 [...] Medicin daily. e nitroglycer Yes APPLY 1 [place] [facility] in 3-16 PATCH ONTO [place] (NITRODUR) 00:00: THE SKIN of 0.6 MG/HR 00 NIGHTLY Medicin patch e nitroglycer Yes APPLY 1 [place] [facility] in 3-16 PATCH ONTO [place] (NITRODUR) 00:00: THE SKIN of 0.6 MG/HR 00 NIGHTLY Medicin patch e clonazepam Yes 1mg Take 1 [facility] (KLONOPIN) 3-16 Tablet by [facility] 1 MG tablet 00:00: mouth at of 00 bedtime. Medicin e nitroglycer Yes APPLY 1 [place] [facility] in 3-16 PATCH ONTO [place] (NITRODUR) 00:00: THE SKIN of 0.6 MG/HR 00 NIGHTLY Medicin patch e RYTARY 2019-07 Yes TAKE 1 [facility] 61.25-245 1-18 CAPSULE College MG CPCR 00:00: FOUR TIMES of 00 A DAY Medicin e acyclovir 2019-07 Yes 400mg Take 400 [place] [facility] (ZOVIRAX) 1-04 mg by [place] 400 MG 16:08: mouth of tablet 20 daily. Medicin e nitroglycer 2019-07 Yes APPLY 1 [place] [facility] in 0-01 PATCH ONTO [place] (NITRODUR) 00:00: THE SKIN of 0.6 MG/HR [...] tablet fludrocorti 2020-0 Yes 200ug Take 2 [place] [facility] sone 9-04 Tabs by [facility]) 00:00: mouth of 0.1 MG 00 daily. Medicin tablet e amphetamine 2020-0 Yes 1{tbl} Take 1 Tab [facility] -dextroamph 9-04 by mouth [facility] etamine 00:00: two times of (ADDERALL, 00 daily. Medicin 10MG,) 10 e MG tablet fludrocorti 2020-0 Yes 200ug Take 2 [place] [facility] sone 9-04 Tabs by [facility]) 00:00: mouth of 0.1 MG 00 daily. Medicin tablet e amphetamine 2020-0 Yes 1{tbl} Take 1 Tab [facility] -dextroamph 9-04 by mouth [place] ege [...] linaCLOtide 2018-07 Yes 1{tbl} Take 1 Tab [facility] 145 MCG 1-22 by mouth College CAPS 00:00: daily. of Medicin e Immunizations Ordered Immunization Filled Immunization Date Status Commen ts Source Name Name Pfizer SARS-CoV-2 2020-09-14 Completed [facility] Vaccination 00:00:00 of Medicine Pfizer SARS-CoV-2 2020-09-14 Completed [facility] Vaccination 00:00:00 of Medicine Pfizer SARS-CoV-2 2020-09-14 Completed [facility] Vaccination 00:00:00 of Medicine Pfizer SARS-CoV-2 2020-08-21 Completed [facility] Vaccination 00:00:00 of Medicine Pfizer SARS-CoV-2 2020-08-21 Completed [facility] Vaccination 00:00:00 of Medicine Pfizer SARS-CoV-2 2020-08-21 Completed [facility] Vaccination 00:00:00 of Medicine Vital Signs Vital Name Observation Time Observation Value Comments Source HEIGHT 2020-04-17 08:04:00 185.4 cm WEIGHT 2020-04-17 08:04:00 76.2 kg HEIGHT 2020-04-16 10:41:00 185.4 cm WEIGHT 2020-04-16 10:41:00 75.751 kg Systolic blood 2021-07-28 19:40:00 95 mm[Hg] [facility] pressure Medicine Diastolic blood 2021-07-28 19:40:00 57 mm[Hg] [facility] of pressure Medicine Heart rate 2021-07-28 19:40:00 87 /min [facility] C ollege of Medicine Body height 2021-07-28 19:40:00 185.4 cm [facility] C ollege of Medicine Body weight 2021-07-28 19:40:00 79.833 kg [facility] C ollege of Medicine BMI 2021-07-28 19:40:00 23.22 kg/m2 [facility] C ollege of Medicine Systolic blood 2021-07-01 19:25:00 167 mm[Hg] [facility] pressure Medicine Diastolic blood 2021-07-01 19:25:00 87 mm[Hg] [facility] Medicine Heart rate 2021-07-01 19:25:00 78 /min [facility] C ollege of Medicine Body height 2021-07-01 19:25:00 185.4 cm [facility] C ollege of Medicine Body weight 2021-07-01 19:25:00 79.153 kg [facility] C ollege of Medicine BMI 2021-07-01 19:25:00 23.02 kg/m2 [facility] C ollege of Medicine Heart rate 2021-01-16 18:23:00 83 /min [facility] C ollege of Medicine Body height 2021-01-16 18:23:00 185.4 cm [facility] C ollege of Medicine Body weight 2021-01-16 18:23:00 78.019 kg [facility] C ollege of Medicine BMI 2021-01-16 18:23:00 22.69 kg/m2 [facility] C ollege of Medicine Systolic blood 2021-01-16 18:23:00 151 mm[Hg] [facility] pressure Medicine Diastolic blood 2021-01-16 18:23:00 72 mm[Hg] [facility] pressure Medicine Systolic blood 2020-05-08 16:08:00 138 mm[Hg] [facility] pressure Medicine Diastolic blood 2020-05-08 16:08:00 83 mm[Hg] [facility] Heart rate 2020-05-08 16:08:00 85 /min [facility] ollege of [facility] Body height 2020-05-08 16:08:00 185.4 cm [facility] ollege of [facility] Body weight 2020-05-08 16:08:00 75.751 kg [facility] ollege of [facility] BMI 2020-05-08 16:08:00 22.03 kg/m2 [facility] ollege of [facility] HEIGHT 2020-04-17 08:04:00 185.4 cm WEIGHT 2020-04-17 08:04:00 76.2 kg HEIGHT 2020-04-16 10:41:00 185.4 cm WEIGHT 2020-04-16 10:41:00 75.751 kg Procedures This patient has no known procedures. Plan of Care Planned Activity Planned Date Details Comments Source Future Scheduled 2021-08-03 Screening for [facility] Col lege of Test 20:51:45 malignant neoplasm of Medici ne colon (procedure) [code = 240186202] Future Scheduled 2021-08-03 TETANUS SHOT (ADULT) [facility] Test 20:51:45 [code = TETANUS SHOT Medicin e (ADULT)] Future Scheduled 2021-08-03 Hepatitis C screening [facility] Test 20:51:45 (procedure) [code = Medicine 318484379] Future Scheduled 2021-08-03 ZOSTER VACCINE (1 of [facility] Test 20:51:45 2) [code = ZOSTER Medicine VACCINE (1 of 2)] Future Scheduled 2021-08-03 FALL SCREEN [code = [facility] of Test 20:51:45 FALL SCREEN] Medicine Future Scheduled 2021-08-03 Pneumococcal 65+ (1 of [facility] of Test 20:51:45 1 - PPSV23) [code = Medicine Pneumococcal 65+ (1 of 1 - PPSV23)] Future Scheduled 2021-08-03 MEDICARE AWV (Initial) [facility] of Test 20:51:45 [code = MEDICARE AWV Medicin e (Initial)] Future Scheduled 2021-08-03 FLU VACCINE > 6 MONTHS [facility] of Test 20:51:45 [code = FLU VACCINE > Medici ne 6 MONTHS] Future Scheduled 2021-08-03 COVID-19 Vaccine (3 - [facility] of Test 20:51:45 Booster for Pfizer Medicine series) [code = COVID-19 Vaccine (3 - Booster for Pfizer series)] Future Scheduled 2021-07-03 Pneumococcal 65+ (1 of [facility] of Test 12:49:33 1 - PPSV23) [code = Medicine Pneumococcal 65+ (1 of 1 - PPSV23)] Future Scheduled 2021-07-03 MEDICARE AWV (Initial) [facility] of Test 12:49:33 [code = MEDICARE AWV Medicin e (Initial)] Future Scheduled 2021-07-03 FLU VACCINE > 6 MONTHS [facility] of Test 12:49:33 [code = FLU VACCINE > Medici ne 6 MONTHS] Future Scheduled 2021-07-03 COVID-19 Vaccine (3 - [facility] of Test 12:49:33 Booster for Pfizer Medicine series) [code = COVID-19 Vaccine (3 - Booster for Pfizer series)] Future Scheduled 2021-07-03 Screening for [facility] Col lege of Test 12:49:33 malignant neoplasm of Medici ne colon (procedure) [code = 963673738] Future Scheduled 2021-07-03 TETANUS SHOT (ADULT) [facility] of Test 12:49:33 [code = TETANUS SHOT Medicin e (ADULT)] Future Scheduled 2021-07-03 Hepatitis C screening [facility] of Test 12:49:33 (procedure) [code = Medicine [id number]] Future Scheduled 2021-07-03 ZOSTER VACCINE (1 of [facility] of Test 12:49:33 2) [code = ZOSTER Medicine VACCINE (1 of 2)] Future Scheduled 2021-07-03 FALL SCREEN [code = [facility] of Test 12:49:33 FALL SCREEN] Medicine Future Scheduled 2021-01-20 Screening for [facility] Col lege of Test 07:50:06 malignant neoplasm of Medici ne colon (procedure) [code = [id number]] Future Scheduled 2021-01-20 TETANUS SHOT (ADULT) [facility] of Test 07:50:06 [code = TETANUS SHOT Medicin e (ADULT)] Future Scheduled 2021-01-20 Hepatitis C screening [facility] of Test 07:50:06 (procedure) [code = Medicine [id number]] Future Scheduled 2021-01-20 ZOSTER VACCINE (1 of [facility] of Test 07:50:06 2) [code = ZOSTER Medicine VACCINE (1 of 2)] Future Scheduled 2021-01-20 PNEUMOVAX >=65 [facility] llege of Test 07:50:06 (PPSV23) [code = Medicine PNEUMOVAX >=65 (PPSV23)] Future Scheduled 2021-01-20 MEDICARE AWV (Initial) [facility] of Test 07:50:06 [code = MEDICARE AWV Medicin e (Initial)] Future Scheduled 2021-01-20 FLU VACCINE > 6 MONTHS [facility] of Test 07:50:06 [code = FLU VACCINE > Medici ne 6 MONTHS] Future Scheduled 2021-01-20 FALL SCREEN [code = [facility] of Test 07:50:06 FALL SCREEN] Medicine Future Scheduled COLON CANCER [facility] ege of Test SCREENING: COLONOSCOPY Medic ine [code = COLON CANCER SCREENING: COLONOSCOPY] Future Scheduled TETANUS SHOT (ADULT) [facility] Test [code = TETANUS SHOT Medicin e (ADULT)] Future Scheduled HEPATITIS C SCREENING [facility] Test [code = HEPATITIS C Medicine SCREENING] Future Scheduled ZOSTER VACCINE (1 of [facility] of Test 2) [code = ZOSTER Medicine VACCINE (1 of 2)] Future Scheduled PNEUMOVAX >=65 [facility] llege of Test (PPSV23) [code = Medicine PNEUMOVAX >=65 (PPSV23)] Future Scheduled MEDICARE AWV (Initial) B [facility] Test [code = MEDICARE AWV Medicin e (Initial)] Future Scheduled FLU VACCINE > 6 MONTHS B [facility] Test [code = FLU VACCINE > Medici ne 6 MONTHS] Future Scheduled FALL SCREEN [code = [facility] of Test FALL SCREEN] Medicine Encounters Start End Encounter Admission Attending Care Care Encounter Source Date/Time Date/Time Type Type Clinicians Facility Department ID 2021-04-09 Outpatient [facility] Surgery [id number] [facility] 09:07:03 ROMINA 2021-07-28 2021-07-28 Office JANICE Torres [id number] [facility] 13:30:00 15:07:09 Visit Guzman AMBULATOR 350.1.13.21 College Y 0.2.7.2.686 [id number] Medi kika 800 e 2021-07-01 2021-07-01 Office JANICE Lyons [id number] [facility] 13:30:00 14:51:09 Visit Geovanna Llanes AMBULATOR 350.1.13.21 College Y 0.2.7.2.686 of [id number] [facility] kika 800 e 2021-01-16 2021-01-16 Office JANICE Torres [id number] [facility] 13:20:10 14:30:12 Visit Guzman AMBULATOR 350.1.13.21 College Y 0.2.7.2.686 of [id number] [facility] kika 800 e 2020-09-12 2020-09-12 Outpatient A_Bytarah [facility] [id number] [place] 02:25:00 02:25:00 0311 Medical Group 2020-05-08 2020-05-08 Office JANICE Torres [id number] [facility] 10:02:47 11:17:09 Visit Guzman AMBULATOR 350.1.13.21 College Y 0.2.7.2.686 of [id number] [facility] kika 800 e 2020-04-16 2020-04-16 [facility] [id number] [facility] 00:00:00 00:00:00 2020-04-12 2020-04-12 Outpatient EL [facility] [id number] [facility] 00:00:00 00:00:00 2020-04-12 2020-04-12 Outpatient EL [facility] [id number] [facility] 00:00:00 00:00:00 2020-04-12 2020-04-12 Outpatient EL [facility] SLE [id number] [facility] 00:00:00 00:00:00 2020-04-12 2020-04-12 Outpatient EL [facility] SLE [id number] [facility] 00:00:00 00:00:00 Results Test Description Test Time Test Comments Results Result [facility] e Comments TISSUE EXAM 2020-04-23 Surgical Pathology 09:25:00 Report Case: [id number] Authorizing Provider: Romina Davis MD Collected: 04/17/2020 11:06 AM Ordering Location: [facility] PERIOPERATIVE Received: 04/17/2020 11:22 AM SERVICES Pathologist: Walker Manuel MD Specimen: Explant, IMPLANTABLE PULSE GENERATOR NEUROSURGICAL HARDWARE, REMOVAL:DEEP BRAIN STIMULATOR DEVICE (GROSS EXAMINATION ONLY) Signing Pathologist Direct Phone Line: [phone] ally signed by Walker Manuel MD on 04/23/2020 at 9:25 [id number] diagnosis: Parkinson's disease, end of battery life of deep brain stimulator Explant Received fresh labeled with the patient's name, accession number and "implantable pulse generator" is a 5.8 x 5.4 x 1.0 cm metallic mei piece of hardware, which is consistent with a deep brain stimulator and displays the following inscription: MedtronicACTIVA FBSN [id number] gross photograph is taken. No sections are [...] NOT 1092) ACCURATE CRE ATININE CLEARANCE IN [place] EDICTING GLOMERULAR FILT RATION RATE. ESTIMATED GFR IS NOT APPLICABLE FOR DIALYSIS PATIENTS. Curriculum Development Coordinator ID - [email or web address] TIME/[id number] 08:56:00 Test Item Value Reference Range Interpretation [...] is2.5-3.5 for patients wiht mechanical heart valves.SARS-COV2/RT-PCR ([facility]) 2020-04-13 11:52:00 Test Item Value Reference Range Interpretation Comments SARS-COV2/RT-PCR (test Negative Not Detected, Negative, code = [id number]) See external report for linked test SARS-COV-2 PERFORMING LAB [facility] (test code = 4549218) Negative result for this test determines that [...] 564(g) of the Act.Fact Sheet for Healthcare Providers:https://www.[employer]/sites/default/files/product/documents/Fact_Rodríguez mccloudf_SZ_Lkkpettnt_Njbp_TLSM-BzW-9.pdfFact Sheet for Healthcare Patients:https://www.[employer]/sites/default/files/product/ documents/Csjb_Cfxct_Toimlcdg_Kqrp_BQBO-TpC-5.pdfPerforming Laboratory:[facility], [place] [address]XBL, CHEST, 2 VIEWS 2020-04-12 14:46:00Reason for exam:->preop testingFINAL REPORT INDICATION: preop testing COMPARISON: June 05, 2019 TECHNIQUE: Frontal and lateral views of the chest. FINDINGS: Lungs and pleura: Clear lungs. No effusion.Heart and mediastinum: Normal heart size. Unremarkable mediastinal contours.Osseous structures: No acute abnormality.Additional findings: None. IMPRESSION: No acute intrathoracic abnormality. Signed: JR Shivam, Cally Batista Verified Date/Time: 04/12/2020 14:46:25 Reading Location: [facility] Radiology Reading Room BASI METABOLIC [id number] 14:07:00 Test Item Value Reference Range Interpretation [...] S NOT APPLICABLE FOR DIALYSIS PATIEN TS. Curriculum Development Coordinator ID - TRAY CURINALYSIS W/ REFLEX URINE [id number] 13:55:00 Test Item Value Reference Range Interpretation [...] = 1584) SOURCE(BEAKER) (test code = 2795) Curriculum Development Coordinator ID - [auto]Curriculum Development Coordinator ID - techPROTHROMBIN TIME/[id number] 13:54:00 Test Item Value Reference Range Interpretation [...] INR is2.5-3.5 for patients wiht mechanical heart valves.[id number] 13:54:00 Test Item Value Reference Range Interpretation Comments PARTIAL THROMBOPLASTIN TIME 34.5 seconds 22.5-36.0 (BEAKER) (test code = 760) CBC W/PLT COUNT & AUTO [id number] 13:48:00 Test Item Value Reference Range Interpretation [...] PERCENT (BEAKER) (test code = 2801) TISSUE [id number] 19:35:00Surgical Pathology Report Case: [id number] Authorizing Provider: Romina Davis MD Collected: 06/05/2019 0843 Ordering Location: [facility] PERIOPERATIVE Received: 06/05/2019 0912 SERVICES Pathologist: Walker Manuel MD Specimen: Explant, dbs battery NEUROSURGICAL HARDWARE, REMOVALlDEEP BRAIN STIMULATOR BATTERY (GROSS EXAMINATION ONLY) Signing Pathologist DirectPhone Line: [phone] signed by Walker Manuel MD on 06/05/2019 at 7:35 [id number] of battery life of deep brain stimulatorReceived fresh labeled with the patient's name, accession number and "explant" is a 5.8 x 5.5 x 1.0 cm, metallic, mei, D-shaped piece of hardware that containsthe following inscription:"Medtronic""ACTIVA SC SN [id number]""[id number]"A gross photograph is taken. No sections are submitted. This case is for gross examination only. PA/ewURINALYSIS W/ REFLEX URINE [id number] 09:58:00 Test Item Value Reference Range Interpretation [...] SOURCE(BEAKER) (test code = 2795) BASIC METABOLIC [id number] 07:42:00 Test Item Value Reference Range Interpretation [...] 1092) DATA TO CALCULA TE ESTIMATED GFR. [id number] 07:22:00 Test Item Value Reference Range Interpretation Comments PARTIAL THROMBOPLASTIN TIME 29.3 seconds 22.5-36.0 (BEAKER) (test code = 760) PROTHROMBIN [id number] 07:21:00 Test Item Value Reference Range Interpretation [...] mechanical heart valves.RAD, CHEST, 1 VIEW, NON [id number] 07:14:00Reason for exam:->End of battery life of [...] Batista Verified Date/Time: 06/05/2019 07:14:29 Reading Location: [facility] Radiology Reading Room CBC W/PLT COUNT & [...] % 0-1 PERCENT (BEAKER) (test code = 3481)
--- NOTE | 2021-08-21 20:04 | EDPHYS ---
Physician Documentation [facility] Name: Cole Bo Age: 76 yrs Sex: Male : 1945 Arrival Date: 08/21/2021 Time: 19:24 Bed 8 Private MD: ED Physician Chad Coates HPI: 08/21 19:57 This 76 yrs old Male presents to ER via Ambulatory with complaints of vick COMBATIVE. 19:57 got anxious after cath, has parkinsons, alert and oriented x4. The patient presents vick with confusion, upset. Onset: The symptoms/episode began/occurred just prior to arrival. Possible causes: CVA or TIA, head injury, low blood sugar. Associated signs and symptoms: Pertinent positives: upset, anxious. Onset: The symptoms/episode began/occurred. Current symptoms: In the emergency department the patient's symptoms have improved, moderately, is more alert. Patient's baseline: Neuro: alert and fully oriented. Severity of symptoms: At their worst the symptoms were mild in the emergency department the symptoms have resolved. Historical: - Allergies: 19:40 No Known Allergies; mk - Home Meds: 19:40 None [Active]; mk - PMHx: 19:40 Hypertensive disorder; OSHS; Parkinson's disease; prostate CA (past); mk - Immunization history:: Adult Immunizations up to date. - Family history:: not pertinent. - Social history:: Smoking status: Patient denies any tobacco usage or history of. ROS: 19:57 Constitutional: Negative for fever, chills, and weight loss, Eyes: Negative for injury, vick pain, redness, and discharge, ENT: Negative for injury, pain, and discharge, Neck: Negative for injury, pain, and swelling, Cardiovascular: Negative for chest pain, palpitations, and edema, Respiratory: Negative for shortness of breath, cough, wheezing, and pleuritic chest pain, Abdomen/GI: Negative for abdominal pain, nausea, vomiting, diarrhea, and constipation, Back: Negative for injury and pain, : Negative for injury, bleeding, discharge, and swelling, MS/Extremity: Negative for injury and deformity, Skin: Negative for injury, rash, and discoloration, Psych: Negative for depression, anxiety, suicide ideation, homicidal ideation, and hallucinations, Allergy/Immunology: Negative for hives, rash, and allergies, Endocrine: Negative for neck swelling, polydipsia, polyuria, polyphagia, and marked weight changes, Hematologic/Lymphatic: Negative for swollen nodes, abnormal bleeding, and unusual bruising. 19:57 Neuro: Positive for parkinsonism. Exam: 19:57 Constitutional: This is a well developed, well nourished patient who is awake, alert, vick and in no acute distress. Head/Face: Normocephalic, atraumatic. Eyes: Pupils equal round and reactive to light, extra-ocular motions intact. Lids and lashes normal. Conjunctiva and sclera are non-icteric and not injected. Cornea within normal limits. Periorbital areas with no swelling, redness, or edema. ENT: Nares patent. No nasal discharge, no septal abnormalities noted. Tympanic membranes are normal and external auditory canals are clear. Oropharynx with no redness, swelling, or masses, exudates, or evidence of obstruction, uvula midline. Mucous membranes moist. Neck: Trachea midline, no thyromegaly or masses palpated, and no cervical lymphadenopathy. Supple, full range of motion without nuchal rigidity, or vertebral point tenderness. No Meningismus. Chest/axilla: Normal chest wall appearance and motion. Nontender with no deformity. No lesions are appreciated. Cardiovascular: Regular rate and rhythm with a normal S1 and S2. No gallops, murmurs, or rubs. Normal PMI, no JVD. No pulse deficits. Respiratory: Lungs have equal breath sounds bilaterally, clear to auscultation and percussion. No rales, rhonchi or wheezes noted. No increased work of breathing, no retractions or nasal flaring. Abdomen/GI: Soft, non-tender, with normal bowel sounds. No distension or tympany. No guarding or rebound. No evidence of tenderness throughout. Back: No spinal tenderness. No costovertebral tenderness. Full range of motion. Male : Normal genitalia with no discharge or lesions. Skin: Warm, dry with normal turgor. Normal color with no rashes, no lesions, and no evidence of cellulitis. MS/ Extremity: Pulses equal, no cyanosis. Neurovascular intact. Full, normal range of motion. Neuro: Awake and alert, GCS 15, oriented to person, place, time, and situation. Cranial nerves II-XII grossly intact. Motor strength 5/5 in all extremities. Sensory grossly intact. Cerebellar exam normal. Normal gait. Psych: Awake, alert, with orientation to person, place and time. Behavior, mood, and affect are within normal limits. Vital Signs: 19:31 BP 203 / 118; Pulse 55; Resp 18; Temp 98.1(T); Pulse Ox 100% ; mk MDM: 19:32 Patient medically screened. vick 20:01 Differential Diagnosis altered mental status. Differential Diagnosis: CVA, electrolyte vick abnormality, hypoglycemia, TIA, volume depletion. Data reviewed: vital signs, nurses notes. Data interpreted: panel monitor: rate is 55 beats/min, rhythm is regular. Test interpretation: by ED physician or midlevel provider:. Counseling: I had a detailed discussion with the patient and/or guardian regarding: the historical points, exam findings, and any diagnostic results supporting the discharge/admit diagnosis, the need for outpatient follow up, for definitive care, a inside sales recruiter, a family practitioner. 08/21 19:34 Order name: Cardiac monitoring; Complete Time: 20:06 [facility] 08/21 19:34 Order name: EKG - Nurse/Tech [facility] 08/21 19:34 Order name: IV Saline Lock [facility] 08/21 19:34 Order name: Labs collected and sent [facility] 08/21 19:34 Order name: O2 Per Protocol [facility] 08/21 19:34 Order name: O2 Sat Monitoring; Complete Time: 20:06 [facility] 08/21 19:34 Order name: Blood Glucose Level vick Administered Medications: No medications were administered Disposition Summary: 08/21/21 20:03 Discharge Ordered Location: Home vick Problem: new vick Symptoms: have improved vick Condition: Stable vick Diagnosis - Essential (primary) hypertension vick - Parkinson's disease vick - Altered mental status, unspecified vick Followup: vick - With: Private Physician - When: Tomorrow - Reason: Recheck today's complaints, Continuance of care, Re-evaluation by your physician Followup: vick - With: Oswaldo Guajardo MD - When: 2 - 3 days - Reason: Recheck today's complaints, Re-evaluation by your physician Discharge Instructions: - Discharge Summary Sheet vick - Confusion vick - Hypertension, Adult vick - Parkinson's Disease vick - Hypertension, Adult, [id number] vick - How to Take Your Blood Pressure, [id number] vick - Managing Your Hypertension vick - Parkinson's Disease, [id number] vick Forms: - Medication Reconciliation Form vick - Thank You Letter vick - Antibiotic Education vick - Prescription Opioid Use vick Signatures: Dispatcher [employer] Chad Connelly MD MD cha Kotarski, Madeline, RN RN felix Corrections: (The following items were deleted from the chart) 08/22 01:14 08/21 19:40 PSHx: deep brain stimulator; felix [place]
--- NOTE | 2021-08-21 20:04 | ER ---
Nurse's Notes [facility] Name: Cole Bo Age: 76 yrs Sex: Male : 1945 Arrival Date: 08/21/2021 Time: 19:24 Bed 8 Private MD: Diagnosis: Essential (primary) hypertension;Parkinson's disease;Altered mental status, unspecified Presentation: 08/21 19:31 Chief complaint: Pt received from Data Control Assistant s/p heart cath via R wrist at 1408, s/p heart cath pt has been combative and attempting to leave, per , this is not pt's baseline. Heart cath found occlusion, per maintenance shop laborer RN but she is unsure where, no stents placed. Hx PD. Coronavirus screen: Vaccine status: Patient reports receiving the 2nd dose of the covid vaccine. Ebola Screen: Patient negative for fever greater than or equal to 101.5 degrees Fahrenheit, and additional compatible Ebola Virus Disease symptoms. Initial Sepsis Screen: Does the patient meet any 2 criteria? No. Patient's initial sepsis screen is negative. Does the patient have a suspected source of infection? No. Patient's initial sepsis screen is negative. Risk Assessment: Do you want to hurt yourself or someone else? Patient reports no desire to harm self or others. Onset of symptoms was August 21, 2021. 19:31 Method Of Arrival: Ambulatory 19:31 Acuity: DENISE 3 Triage Assessment: 19:40 General: Appears Behavior is combative. Pain: Denies pain. Neuro: Level of Consciousness is awake, alert, obeys commands, Oriented to person, place, time, oriented to situation prior to surgery . Cardiovascular: Heart tones S1 S2 present Capillary refill < 3 seconds in bilateral fingers toes JVD Patient's skin is warm and dry. Pulses are 3+ in right radial artery, right dorsalis pedis artery, left radial artery and left dorsalis pedis artery. Respiratory: Airway is patent Trachea midline Respiratory effort is even, unlabored, Respiratory pattern is regular, symmetrical, Breath sounds are clear. GI:. GI: No signs and/or symptoms were reported involving the gastrointestinal system. : No signs and/or symptoms were reported regarding the genitourinary system. Derm: Skin is intact, is healthy with good turgor, Skin is dry, Skin is pink, warm \T\ dry. Skin temperature is warm Wound noted R wrist Other: intact pulses and no hematoma s/p heart cath. Musculoskeletal: Circulation, motion, and sensation intact. Capillary refill < 3 seconds, in bilateral fingers. toes. Range of motion: intact in all extremities. Historical: - Allergies: 19:40 No Known Allergies; mk - Home Meds: 19:40 None [Active]; - PMHx: 19:40 Hypertensive disorder; OSHS; Parkinson's disease; prostate CA (past); - Immunization history:: Adult Immunizations up to date. - Family history:: not pertinent. - Social history:: Smoking status: Patient denies any tobacco usage or history of. Screenin:30 Abuse screen: Denies threats or abuse. Nutritional screening: No deficits noted. Tuberculosis screening: No symptoms or risk factors identified. Fall Risk No fall in past 12 months (0 pts). No secondary diagnosis (0 pts). IV access (20 points). Ambulatory Aid- None/Bed Rest/Nurse Assist (0 pts). Gait- Normal/Bed Rest/Wheelchair (0 pts) Mental Status- Oriented to own ability (0 pts). Total Pal Fall Scale indicates No Risk (0-24 pts). Vital Signs: 19:31 BP 203 / 118; Pulse 55; Resp 18; Temp 98.1(T); Pulse Ox 100% ; mk ED Course: 19:24 Patient arrived in ED. kc5 19:31 Guillermina Gipson, RN is Primary Nurse. 19:32 Chad Coates MD is Attending Physician. [facility] 19:40 Arm band placed on. 19:40 Allergy band placed. Placed in gown. Bed in low position. Call light in reach. Side rails up X 1. 19:40 No provider procedures requiring assistance completed. Patient did not have IV access during this emergency room visit. 19:54 Triage completed. 20:02 Oswaldo Guajardo MD is Referral Physician. [facility] Administered Medications: No medications were administered Outcome: 20:00 Discharged to home with family. 20:00 Condition: stable 20:00 Discharge instructions given to patient, family. 20:03 Discharge ordered by . [facility] 20:11 Patient left the ED. mw2 Signatures: Chad Coates MD MD cha Westbrook, MyKena mw2 Ciarra Randolph kc5 Guillermina Gipson, RN RN felix Corrections: (The following items were deleted from the chart) 08/22 01:14 08/21 19:40 PSHx: deep brain stimulator; felix [place]
[2021-08-21 21:02] VITALS: BP 203/118; TEMP 98.1; O2SAT 100
== END 2021-08-21 20:11 | disposition home or self-care (01) ==
LOC: ER 19:16
DX: R41.82 Altered mental status, unspecified (principal); I10 Essential (primary) hypertension; G20 Parkinson's disease
CPT/HCPCS: 99284